=== PATIENT | female | born 1980 | race Caucasian/White ===

== ENCOUNTER 2020-02-14 16:34 | Emergency (ER) | payer OTHER ==
[~2020-02-14] VITALS: Ht 182.9 cm; Wt 62.1 kg
[2020-02-14 17:37] VITALS: BP 118/78
--- NOTE | 2020-02-14 17:40 | NUR ---
ED Nurse Note:pt. came with left thigh edema, vascular study being done
--- NOTE | 2020-02-14 18:09 | Emergency Room Report ---
History of Present Illness General Chief Complaint: Edema Source: Patient Present Illness HPI 39-year-old female presents to the emergency department complaining of 3 out of 10 severity pain swelling and tenderness to the left inner thigh x 1 month. Patient reports history of asthma she denies taking control and she denies smoking. Patient reports that she has been horseback riding very often lately a nd states that every time she does she has pain in the inner left thigh. Patient reports that the thighs are very important and staying on the horse. She reports some slight bruising to the medial left thigh. She denies abdominal pain or tenderness she denies inguinal pain or tenderness. Allergies: Coded Allergies: No Known Allergies (Unverified , 02/14/20) COVID-19 Screening Contact w/high risk pt: No Experienced COVID-19 symptoms?: No COVID-19 Testing performed JUNK [employer]ER: No Patient History Past Medical History: see triage record Past Surgical History: none Pertinent Family History: none Last Menstrual Period: depo Now: No Reviewed Nursing Documentation: PMH: Agreed; PSxH: Agreed Nursing Documentation-PMH Past Medical History: No History, Except For Hx Asthma: Yes Review of Systems All Other Systems: negative except mentioned in HPI Physical Exam Vital Signs Date Time Temp Pulse Resp B/P (MAP) Pulse Ox O2 Delivery O2 Flow Rate FiO2 02/14/20 16:36 97.2 53 17 118/78 (91) 98 Room Air Sp02 EP Interpretation: reviewed, normal General Appearance: no apparent distress, alert, GCS 15, non-toxic Head: normocephalic, atraumatic Eyes: bilateral eye normal inspection, bilateral eye PERRL ENT: hearing grossly normal, normal voice Neck: full range of motion Respiratory: lungs clear, normal breath sounds, speaking full sentences Cardiovascular #1: regular rate, rhythm, no edema, normal capillary refill Cardiovascular #2: 2+ dorsalis pedis (R), 2+ dorsalis pedis (L) Gastrointestinal: non tender, soft Genitourinary: normal inspection, adnexa normal Musculoskeletal: back normal, normal range of motion, gait/station normal, tender - Left adductor muscle proximally, there is swelling noted. no warmth, slight bruise. Pt. able to extend her left leg with some pain- mild. am bulatory. Neurologic: alert, motor strength/tone normal, oriented x3, sensory intact, responsive, speech normal Psychiatric: judgement/insight normal Skin: no rash, normal color - very light bruise noted to medial left thigh. Lymphatic: no adenopathy Medical Decision Making PA Attestation Dr. Palomino is my supervising Physician whom patient management has been discussed with. Diagnostic Impression: Primary Impression: Thigh pain Qualified Codes: M79.652 - Pain in left thigh Additional Impression: Injury of adductor muscle and tendon of left thigh Qualified Codes: S76.202A - Unspecified injury of adductor muscle, fascia and tendon of left thigh, initial encounter ER Course Pt. presents to the ED c/o Right foot pain since this am, unable to completely bear weight on extremity and is atraumatic. decreased pulses bilaterally. pmhx of Dm and HTN. Ddx considered but are not limited to Cellulitis, DVT, varicose vein, PAD,Venous insufficiency, SPRAIN/Strain, Fx, D/L Vital signs: are WNL, pt. is afebrile H&PE are most consistent with ORDERS: none required at this time, the diagnosis is clinical ED INTERVENTIONS: None required at this time. DISCHARGE: At this time pt. is stable for d/c to home. Will provide printed patient care instructions, and any necessary prescriptions. Care plan and follow up instructions have been discussed with the patient prior to discharge. CT/MRI/US Diagnostic Results CT/MRI/US Diagnostic Results : Imaging Test Ordered: Venous Duplex US Left LE Impression " Negative for DVT." --Per official radiology report- Please see report for specific details. Last Vital Signs Date Time Temp Pulse Resp B/P (MAP) Pulse Ox O2 Delivery O2 Flow Rate FiO2 02/14/20 17:37 57 17 Room Air 02/14/20 17:37 97.2 118/78 98 Disposition: HOME, SELF-CARE Condition: Stable Scripts Diclofenac Sodium (VOLTAREN) 100 Gm Gel..gram. 1 APPLIC TP Q6HR, #100 GM Prov: Christina Hernandez 02/14/20 Ibuprofen* (MOTRIN*) 600 Mg Tablet 600 MG ORAL THREE TIMES A DAY, #20 TAB Prov: Christina Hernandez 02/14/20 Patient Instructions: Adductor Muscle Strain With Rehab-SportsMed Additional Instructions: Take medications as directed. Follow up with a Primary Care Provider in 3-5 days, even if your symptoms have resolved. RECOMMEND DEFINITIVE EVALUATION WITH OUTPATIENT MRI Return sooner to ED if new symptoms occur, or current symptoms become worse. - Please note that this Emergency Department Report was dictated using [employer] nailer technology software, occasionally this can lead to erroneous entry secondary to interpretation by the dictation equipment. Christina Hernandez Feb 14, 2020 18:09
[2020-02-14] MEDS ORDERED: VOLTAREN100 G1 TP (18:11)
[2020-02-14] MEDS ORDERED: IBUPROFEN600 M1 ORAL (18:11)
[2020-02-14 18:35] VITALS: BP 118/78
--- NOTE | 2020-02-14 18:35 | NUR ---
ED Nurse Note: Pt cleared by health care Provider for discharge. DC instructions/prescription was given and explained to pt and verbalized understanding of teachings. All medical deviecs such as ID band removed. Pt is AAO x4, ambulatory and left with all personal belongings.
--- NOTE | 2020-02-15 15:29 | Diagnostic Imaging Report ---
Indication: Left larger knee pain and swelling Technique: Grayscale and duplex images of the left lower extremity veins Comparison: None Findings: On the left, grayscale and duplex images demonstrate no evidence of intraluminal thrombus. Normal phasic Doppler waveforms, demonstrating normal augmentation response and no evidence of valvular insufficiency. Greater saphenous vein(s) and tibial veins are patent. Normal compressibility. Impression: Negative for evidence of lower extremity deep venous thrombosis on the left
== END 2020-02-14 18:35 | disposition home or self-care (01) ==
LOC: EMR 17:15
DX: S76.202A Unspecified injury of adductor muscle, fascia and tendon of left thigh, initial encounter (principal); S70.12XA Contusion of left thigh, initial encounter; Y92.9 Unspecified place or not applicable; Y93.52 Activity, horseback riding; M25.562 Pain in left knee
CPT/HCPCS: 93971; 99283